=== PATIENT | male | born 1990 | race Caucasian/White ===

== ENCOUNTER 2023-01-20 12:13 | Emergency (ER) | payer MEDICAID, OTHER ==
[~2023-01-20] VITALS: Ht 182.9 cm; Wt 77.3 kg
[~2023-01-20 12:13] MED LIST: AMOX500T2 PO; CLIN150C8 PO
[2023-01-20 12:18] VITALS: BP 121/77
[2023-01-20] MEDS: buprenorphine/naloxone 8MG-2MG SUBlingual film SL STA ×2 (13:40→13:48)
[2023-01-20] MEDS ORDERED: BUPR1FIL3 SL (13:49)
--- NOTE | 2023-01-20 14:18 | NUR ---
Received order for consult. Patient was discharged. Number is disconnected in patient's chart. Unable to follow up.
== END 2023-01-20 14:08 | disposition home or self-care (01) ==
LOC: ER 12:13
DX: F11.99 Opioid use, unspecified with unspecified opioid-induced disorder (principal); F12.90 Cannabis use, unspecified, uncomplicated; Z88.5 Allergy status to narcotic agent
CPT/HCPCS: 99283

== ENCOUNTER 2023-01-28 12:21 | Emergency (ER) | payer MEDICAID ==
[~2023-01-28] VITALS: Ht 182.9 cm; Wt 77.3 kg
[~2023-01-28 12:21] MED LIST changes: +BUPR1FIL3 SL
[2023-01-28 12:51] VITALS: BP 109/76
--- NOTE | 2023-01-28 12:54 | NUR ---
Met with patient for the Bridge program. Patient unable to get an appt yet with [facility]. Just needs another week of Suboxone. I talked to Miguel he will see patient.
[2023-01-28] MEDS ORDERED: BUPR1FIL3 SL (13:32)
== END 2023-01-28 14:05 | disposition home or self-care (01) ==
LOC: ER 12:24
DX: F19.10 Other psychoactive substance abuse, uncomplicated (principal); F12.90 Cannabis use, unspecified, uncomplicated; Z56.0 Unemployment, unspecified; Z88.8 Allergy status to other drugs, medicaments and biological substances; Z79.899 Other long term (current) drug therapy; Z72.89 Other problems related to lifestyle
CPT/HCPCS: 99281

== ENCOUNTER 2023-04-15 13:45 | Emergency (ER) | payer MEDICAID ==
[~2023-04-15] VITALS: Ht 180.3 cm; Wt 67.0 kg
[~2023-04-15 13:45] MED LIST changes: -BUPR1FIL3 SL; +CLIN-214 PO; -CLIN150C8 PO
[2023-04-15 13:58] VITALS: BP 118/73; PULSE 99; RESP 16; TEMP 97.8; O2SAT 99
--- NOTE | 2023-04-15 14:01 | NUR ---
Met with patient for the Bridge Program. Patient has appointment at [facility] next week. Patient requesting Suboxone until appt. I talked to Stormy she will give RX for Suboxone.
[2023-04-15] MEDS ORDERED: BUPR1FIL3 SL (14:03)
== END 2023-04-15 14:40 | disposition home or self-care (01) ==
LOC: ER 13:46
DX: F11.10 Opioid abuse, uncomplicated (principal); Z53.21 Procedure and treatment not carried out due to patient leaving prior to being seen by health care provider
CPT/HCPCS: 99281

== ENCOUNTER 2023-04-22 13:11 | Emergency (ER) | payer MEDICAID ==
[~2023-04-22] VITALS: Ht 180.3 cm; Wt 72.4 kg
[~2023-04-22 13:11] MED LIST changes: +BUPR1FIL3 SL
[2023-04-22 13:45] VITALS: BP 120/81; PULSE 101; RESP 18; TEMP 97.9; O2SAT 98
[2023-04-22] MEDS ORDERED: BUPR1FIL3 SL (15:15)
== END 2023-04-23 06:42 | disposition home or self-care (01) ==
LOC: ER 13:12
DX: F11.10 Opioid abuse, uncomplicated (principal); Z88.6 Allergy status to analgesic agent; Z79.899 Other long term (current) drug therapy; F12.10 Cannabis abuse, uncomplicated
CPT/HCPCS: 99281; 99283

== ENCOUNTER 2023-05-19 22:41 | Emergency (ER) | payer MEDICAID ==
[~2023-05-19] VITALS: Ht 180.3 cm; Wt 77.3 kg
[~2023-05-19 22:41] MED LIST changes: -BUPR1FIL3 SL
[2023-05-19 22:50] VITALS: BP 126/86; PULSE 106; RESP 17; TEMP 98.3; O2SAT 98
[2023-05-20] MEDS ORDERED: cephalexin 250mg capsule PO ONE (02:35)
[2023-05-20] MEDS ORDERED: CEPH250T PO (02:40)
== END 2023-05-20 02:55 | disposition home or self-care (01) ==
LOC: ER 22:42
DX: L08.9 Local infection of the skin and subcutaneous tissue, unspecified (principal); F17.200 Nicotine dependence, unspecified, uncomplicated; F12.90 Cannabis use, unspecified, uncomplicated; Z88.5 Allergy status to narcotic agent; Z79.2 Long term (current) use of antibiotics
CPT/HCPCS: 99283

== ENCOUNTER 2025-03-22 13:45 | Inpatient (IN) | payer MEDICAID ==
[~2025-03-22] VITALS: Ht 180.3 cm; Wt 73.2 kg
--- NOTE | 2025-03-22 16:24 | Physician Documentation ---
History of Present Illness ~ Chief Complaint: Wound Stated Complaint: WOUND Time Seen by MD: 15:05 Primary Medical Doctor: HASMUKH BARKSDALE [facility] 34-year-old male presents to the ED with a complaint of right lower extremity ulcerated wound. States this has been going on for the last three weeks. He adds that he has not been treated for his infection. He also acknowledges being a intravenous opioid user.. He denies the wound being a miss Denies any fevers. States that he is willing to stay in the hospital for IV antibiotics Day of Onset of Wound: Mar 22, 2025 Tetanus within 5 years?: Yes Medication Reconciliation Allergies: Coded Allergies: naproxen (Verified Allergy, Unknown, 03/22/25) Scheduled Amoxicillin (Amoxicillin), 1 TABLET PO TID Clindamycin HCl (Clindamycin HCl CAPSULE), 3 CAP PO QID Past Medical History Past Medical History: No Pertinent History Past Surgical History: no surgical history Smoking Status: Current every day smoker Alcohol Use: Occasionally Drug Use: marijuana, other Lives with: Family Lives In: Homeless Occupation: unemployed Review of Systems All Other Systems at this time: Reviewed and Negative ROS As stated above in the HPI, otherwise all systems are reviewed and negative. Physical Exam Vital Signs: Temperature: 99.0, Source: Temporal, Heart Rate: 112, Respiratory Rate: 16, BP: 112/84, Pulse Oximetry: 100, Weight: 73.200 Oxygen Flow Rate: 0 Physical Exam General: Alert, no apparent distress. Neck: Full range of motion. Respiratory: Lungs clear, no respiratory distress. Cardiovascular: Regular rate and rhythm, no murmurs. Extremities: 6x4cm ulcer draining RLE, surrounding erythema Neurologic: Oriented x4. Psychiatric: Normal mood and affect. Skin: Normal color, warm and dry. No edema, no ecchymosis. Progress Results/Orders Results/Orders Orders - DAMIAN REID SENIOR ELECTRICAL PROJECT MANAGER Ankle, Complete(3vw Min) (03/22/25 16:29) Culture Blood (03/22/25 16:09) Urinalysis, Cult If Indicated (03/22/25 16:09) Chest,Single View (03/22/25 16:29) Monitor (03/22/25 16:09) Saline Lock (03/22/25 16:09) Piperacillin/Tazo 4.5gm/100ml (Zosyn 4.5 (03/22/25 20:00) Page Hospitalist (03/22/25 ) Completed Orders - DAMIAN REID SENIOR ELECTRICAL PROJECT MANAGER Ankle, Complete(3vw Min) (03/22/25 16:29) Cbc/Diff (03/22/25 16:09) Chest,Single View (03/22/25 16:29) Procalcitonin (03/22/25 16:09) BMP (03/22/25 16:09) Lacticsepsis (03/22/25 16:09) Normal Saline 1000ml (0.9% Sodium Chlori (03/22/25 16:35) Vancomycin*Pharmacy To Dose* (Vancomycin (03/22/25 16:35) Morphine 4mg/Ml Inj. (Morphine Inj.) (03/22/25 16:35) Vancomycin/Ns 1 Gm Add-[place] (Vancomyc (03/22/25 16:40) Hgb A1c (03/22/25 16:36) Medications Received in ER Medications (Trade) Dose Ordered Sig/Charisse Route PRN Reason Start Time Stop Time Status Last Admin Dose Admin (0.9% sodium chloride (NS) 1000ml IV soln) 1,000 ml ONCE ONCE IVB 03/22/25 16:35 03/22/25 16:36 DC 03/22/25 17:04 1,000 ML (morphine inj.) 4 mg ONCE ONCE IV 03/22/25 16:35 03/22/25 16:36 DC 03/22/25 17:05 4 MG Vancomycin HCl 250 ml @ 166 mls/hr ONCE ONCE IV 03/22/25 16:40 03/22/25 18:10 DC 03/22/25 17:05 166 MLS/HR Vital Signs 03/22/25 13:51 Temp 99.0 Pulse 112 Resp 16 B/P (MAP) 112/84 Pulse Ox 100 O2 Flow Rate 0 Laboratory Tests Test 03/22/25 16:36 White Blood Count 7.7 Red Blood Count 4.44 L Hemoglobin 12.4 L Hematocrit 36.2 L Mean Corpuscular Volume 81.6 Mean Corpuscular Hemoglobin 27.8 Mean Corpuscular Hemoglobin Concent 34.1 Red Cell Distribution Width 12.6 Platelet Count 315 Mean Platelet Volume 6.8 L Neutrophils (%) (Auto) 74.8 Lymphocytes (%) (Auto) 13.7 L Monocytes (%) (Auto) 9.7 Eosinophils (%) (Auto) 1.3 Basophils (%) (Auto) 0.5 Neutrophils # (Auto) 5.7 Lymphocytes # (Auto) 1.0 L Monocytes # (Auto) 0.7 Eosinophils # (Auto) 0.1 Basophils # (Auto) 0.0 CBC Comment Erythrocyte Sedimentation Rate 38 H Sodium Level 134 L Potassium Level 3.6 Chloride Level 99 Carbon Dioxide Level 31.0 Anion Gap 4 L Blood Urea Nitrogen 12 Creatinine 0.81 Estimated GFR/1.73 m2 > 90 BUN/Creatinine Ratio 14.8 Glucose Level 75 Hemoglobin A1c 5.3 Lactic Acid Level 0.9 Calcium Level 8.7 Albumin 3.0 L Procalcitonin < 0.05 Chemistry Comments Medical Decision Making Findings This patient rice going to require IV antibiotics and evaluation by the hospitalist. He has maintained normal vital signs in his hemodynamically stable. However based on life choices and my concern of him being a poor outpatient candidate,behooves meet to request hospital admission Differential Dx:Considerations: Include: Abscess, Cellulitis Departure Disposition: HOME / SELF CARE / HOMELESS Impression: Primary Impression: Wound cellulitis Additional Impression: Wound Condition: Stable Discharge Instructions: Skin Abscess Referrals: NO PRIMARY CARE PROVIDER (PCP) Signature Scribe Signature: g Attestation: Scribed for Damian Reid Stave Block Splitter by Damian Yeung NP . 03/22/25 18:37 DAMIAN REID NP Mar 22, 2025 16:24
[2025-03-22 16:56] LABS: MEAN PLATELET VOLUME 6.8 FL (7.4-10.4); RED CELL DISTRIBUTION WIDTH 12.6 % (11.5-14.5)
[2025-03-22] MEDS: normal saline 1000ML IV soln IVB ONE (17:04)
[2025-03-22] MEDS: vancomycin/NS 1 GM ADD-VANTAGE 250 ML X 1 DOSE IV ONE (17:05)
[2025-03-22] MEDS: morphine 4 MG/ML inj SYRINge IV ONE (17:05)
[2025-03-22 17:10] LABS: CREATININE 0.81 MG/DL (0.60-1.10); TOTAL CARBON DIOXIDE 31.0 MMOL/L (24-32); eCRCL 132 ML/MIN; eGFR > 90 ML/MIN
--- NOTE | 2025-03-22 17:11 | RADIOLOGY REPORT ---
Indication: ulcerated wound right lower leg Technique: DI ANKLE, COMPLETE(3VW MIN)ANKLECPLT Comparison: None FINDINGS/IMPRESSION: No radiographic evidence for acute fracture or dislocation. Extensive soft tissue edema surrounding the right ankle. Distal right lower anterior extremity soft tissue ulceration
--- NOTE | 2025-03-22 17:11 | RADIOLOGY REPORT ---
CHEST RADIOGRAPH Indication: ulcerated wound right lower leg Technique: DI CHEST,SINGLE VIEW Comparison: None FINDINGS: The cardiac silhouette is unremarkable. The lungs demonstrate no pulmonary airspace consolidation. Th e pulmonary vasculature is unremarkable. There is no pleural effusion. There is no pneumothorax. IMPRESSION: No pulmonary airspace consolidation.
[2025-03-22] MEDS ORDERED: ondansetron/PF 4mg/2ml inj IV PRN (17:40)
[2025-03-22] MEDS ORDERED: magnesium sulf-water 2g/50mL 50 ML IV PRN (17:40)
[2025-03-22] MEDS ORDERED: magnesium sulf-water 4G/100mL 100 ML IV PRN (17:40)
[2025-03-22] MEDS ORDERED: magnesium hydroxide 30ml (MOM) UD suspension PO PRN (17:40)
[2025-03-22] MEDS ORDERED: mag hydrox/Alum hydrox/simeth 30ml oral suspension PO PRN (17:40)
[2025-03-22] MEDS ORDERED: potassium Cl 40MEQ/1/2NS 520ml 520 ML IV PRN (17:40)
[2025-03-22] MEDS ORDERED: potassium Cl 20 mEq SR tablet PO PRN ×2 (17:40)
[2025-03-22] MEDS ORDERED: magnesium Cl slow-release 64mg tablet PO PRN (17:40)
[2025-03-22] MEDS: normal saline 1000ml 1,000 ML IV SCH (17:57)
--- NOTE | 2025-03-22 18:25 | HISTORY AND PHYSICAL-Residence ---
History & Physical Providers to CC Resident Creating Document: BRANDEN MCDONALD RES ~ History of Present Illness Primary Medical Doctor: HASMUKH BARKSDALE Reason for Admit\Complaint: wound History of Present Illness 34-year-old homeless male with a history of opioid use disorder on Suboxone and chronic methamphetamine use presents with a painful, draining wound on the right anterior thigh. The lesion began approximately 3 weeks ago as a small bump, which has progressively enlarged to approximately 44 cm. He describes continuous drainage of bloody and purulent fluid. Pain was initially 5/10 but is currently 2/10. He reports swimming in natural water for a full day around the time the lesion worsened. Denies fevers, chills, or other systemic symptoms. Denies known trauma, insect bites, or similar lesions elsewhere. Continues to smoke methamphetamine and fentanyl but has been on Suboxone for the past two years. Does not have a PCP Homeless currently Ambulates independently Allergies: Coded Allergies: naproxen (Verified Allergy, Unknown, 03/22/25) Home Medications Home Medications Active Amoxicillin 500 Mg Tablet 1 Tablet PO TID Clindamycin HCl CAPSULE (Clindamycin HCl) 150 Mg Capsule 3 Cap PO QID Past Medical History Past Medical History No significant past medical history Past Surgical History Surgical History Comment No surgeries in the past Past Social History Social History Comment Smoking: Half pack of cigarettes since the past 10 years Alcohol: Denied Illicit use of drugs: Fentanyl: Smokes since the past 4 or 5 years, last today morning Methamphetamine: Smokes twice a week since the past 25 years Alcohol Use: Occasionally Drug Use: Marijuana, Other Lives with: Family Lives In: Homeless Occupation: unemployed ROS ROS Reviewed in full. All negative except for pertinent positive HPI. Exam Vitals: Vital Signs Date Time Temp Pulse Resp B/P (MAP) Pulse Ox O2 Delivery O2 Flow Rate FiO2 03/22/25 17:39 16 03/22/25 17:11 86 100 0 03/22/25 13:51 99.0 General: Awake , alert, and oriented x4, resting comfortably in the bed, in no acute distress HEENT: Atraumatic, normocephalic, EOMI, anicteric sclera ; pink conjunctiva Neck: Trachea midline. Supple, full range of motion, no JVD Cardiac: Regular rhythm, regular rate with no murmurs all over the precordium. Respiratory: Equal breath sounds bilaterally, no tachypnea, no wheezing ,rub or rales, Chest wall is symmetric and without deformity. Gastrointestinal: Abdomen symmetric, non-distended, soft, non-tender, normal bowel sounds x4 quadrant, normoactive, no hepatosplenomegaly Musculoskeletal: Right lower extremity: Pustular and blood draining for into 4 cm ulcer with a yellowish slough present on the anterior cruz of the right lower extremity, edema of the foot present Left lower extremity: No pedal edema, no cyanosis Neurological: Speech is clear, alert, and oriented x 4. No motor or sensory deficit, deep tendon reflexes normal, cerebellar intact. Cranial nerves II-XII intact. Skin: Warm and dry Diagnostic Data Last Recorded Lab Results: 03/22/25 1636 03/22/25 1636 Advance Care Planning Advanced Care plannin - 30 Minutes Additional Plan 1. Right anterior thigh skin lesion concern for abscess vs cellulitis vs necrotizing infection: Likely bacterial skin and soft tissue infection, potentially polymicrobial due to environmental exposure and drug use Wound cultures (aerobic and anaerobic) ordered. Blood cultures 2 ordered. Imaging: Right foot and ankle x-ray showed: No radiographic evidence for acute fracture or dislocation. Extensive soft tissue edema surrounding the right ankle. Distal right lower anterior extremity soft tissue ulceration Procalcitonin and white count within normal limits ESR ordered: We will consider ordering MRI if elevated NS at 100 cc/hour Empiric IV antibiotics: He received Vancomycin for MRSA coverage in the ED. Initiating vancomycin and cefepime from tomorrow Wound care consult ordered 2. Substance use disorder (opioids and methamphetamines): Initiated [place] and morphine p.r.n. avoid withdrawal Urine toxicology screen ordered. Substance abuse navigator and social insurance administrator consulted On sitting provided regarding abstinence 3. Homelessness / Housing insecurity: Case management and social work referral for discharge planning and prison resources. 4. Tetanus prophylaxis: Tdap booster ordered Code Status: Full code DVT Prophylaxis: Heparin SQ Analgesia/ Sedation: Morphine/[place] Line/tubes: P IV Nutrition: Regular diet Prognosis: Guarded Disposition: Continue medical management for now Branden Mcdonald MD Internal Medicine Resident, PGY-2 Date of Service: Mar 22, 2025 Billing Provider: DARRIUS CEBALLOS MD, GAURAV, RES Mar 22, 2025 18:25
[2025-03-22] MEDS: TETanus/Pertussis (Acell)/Diphther VAC/PF (Tdap-Adult) 0.5ml syringe IMVAC ONE (18:40)
[2025-03-22] MEDS ORDERED: NO HOME MEDS (18:41)
[2025-03-22] MEDS: K and/or MAG REPLACEMENT MC SCH (19:43)
[2025-03-22] MEDS: heparin, porcine 5000 units/ml vial SQ SCH (20:00)
[2025-03-22] MEDS: docusate sod 100mg capsule PO SCH (20:00)
[2025-03-22] MEDS ORDERED: piperacillin/tazo 4.5gm/100ml 100 ML IV ONE (20:00)
[2025-03-22] MEDS: cefepime 1GM in D5W 50mL 50 ML IV SCH (20:01)
[2025-03-22 22:15] VITALS: BP 145/98; PULSE 97; RESP 18; TEMP 97.8; O2SAT 95
[2025-03-22] MEDS: vancomycin/NS 1 GM ADD-VANTAGE 250 ML IV SCH (23:56)
[2025-03-22] MEDS: HYDROcodone/acetaminophen 5mg/325mg tablet PO PRN (23:58)
[2025-03-23 00:49] LABS: LEUKOCYTE ESTERASE ,URINE TRACE (Neg); NITRITES, URINE NEGATIVE (Neg); OCCULT BLOOD,URINE NEGATIVE (Neg)
[2025-03-23 00:50] LABS: UA COLLECTION TYPE VOIDED
[2025-03-23 00:58] LABS: MUCUS STRANDS MANY /LPF (Neg); SPERM MODERATE /HPF (NEGATIVE); SQUAMOUS EPITHELIAL CELL,UR FEW /LPF (FEW)
[2025-03-23 01:25] LABS: URINE AMPHETAMINE SCREEN POSITIVE (Neg); URINE BARBITUATE SCREEN NEGATIVE (Neg); URINE BENZODIAZEPINES SCREEN NEGATIVE (Neg); URINE CANNABINOID SCREEN NEGATIVE (Neg); URINE COCAINE SCREEN NEGATIVE (Neg); URINE METHADONE SCREEN NEGATIVE (Neg); URINE OPIATE SCREEN POSITIVE (Neg); URINE PHENCYCLIDINE SCREEN NEGATIVE (Neg)
[2025-03-23 04:40] LABS: MEAN PLATELET VOLUME 6.7 FL (7.4-10.4); RED CELL DISTRIBUTION WIDTH 12.7 % (11.5-14.5)
[2025-03-23 05:01] LABS: CHOL/HDL RATIO 3.6 (0.00-4.99); CREATININE 0.67 MG/DL (0.60-1.10); LDL CHOLESTEROL 77 MG/DL (50-100); TOTAL CARBON DIOXIDE 28.9 MMOL/L (24-32); eCRCL 159 ML/MIN; eGFR > 90 ML/MIN
[2025-03-23 06:00] VITALS: BP 128/81; PULSE 92; RESP 18; TEMP 97.8; O2SAT 100
[2025-03-23 08:00] VITALS: RESP 16; O2SAT 100
[2025-03-23 10:00] VITALS: BP 123/87; PULSE 88; RESP 16; TEMP 97.7; O2SAT 100
[2025-03-23] MEDS: VANCOMYCIN LEVEL IV ONE (17:24)
[2025-03-23 18:00] VITALS: BP 121/80; PULSE 88; RESP 16; TEMP 96.9; O2SAT 99
--- NOTE | 2025-03-23 18:38 | PROGRESS NOTE- Residence ---
Progress Note - Resident Providers to CC Resident Creating Document: BRANDEN SANCHEZ RES ~ Antibiotic Timeout Antibiotic Ordered?: Yes Subjective Patient was seen and examined at bedside, oral care has been ordered today. Patient denied any acute overnight symptoms. Objective Vital Signs Date Time Temp Pulse Resp B/P (MAP) Pulse Ox O2 Delivery O2 Flow Rate FiO2 03/23/25 14:49 18 03/23/25 10:00 97.7 88 123/87 (99) 100 Room Air 03/22/25 20:07 0 Result Diagram: 03/23/25 0416 03/23/25 0416 Awake , alert, and oriented x4, resting comfortably in the bed, in no acute distress HEENT: Atraumatic, normocephalic, EOMI, anicteric sclera ; pink conjunctiva Neck: Trachea midline. Supple, full range of motion, no JVD Cardiac: Regular rhythm, regular rate with no murmurs all over the precordium. Respiratory: Equal breath sounds bilaterally, no tachypnea, no wheezing ,rub or rales, Chest wall is symmetric and without deformity. Gastrointestinal: Abdomen symmetric, non-distended, soft, non-tender, normal bowel sounds x4 quadrant, normoactive, no hepatosplenomegaly Musculoskeletal: Right lower extremity: Dressing in place Left lower extremity: No pedal edema, no cyanosis Neurological: Speech is clear, alert, and oriented x 4. No motor or sensory deficit, deep tendon reflexes normal, cerebellar intact. Cranial nerves II-XII intact. Skin: Warm and dry Advance Care Planning Advanced Care plannin - 30 Minutes Assessment Assessment 34-year-old homeless male with a history of opioid use disorder on Suboxone and chronic methamphetamine use presents with a painful, draining wound on the right anterior thigh. The lesion began approximately 3 weeks ago as a small bump, which has progressively enlarged to approximately 44 cm. He describes continuous drainage of bloody and purulent fluid. Pain was initially 5/10 but is currently 2/10. He reports swimming in natural water for a full day around the time the lesion worsened. Denies fevers, chills, or other systemic symptoms. Denies known trauma, insect bites, or similar lesions elsewhere. Continues to smoke methamphetamine and fentanyl but has been on Suboxone for the past two years. Plan Plan 1. Right anterior thigh skin lesion concern for abscess vs cellulitis vs necrotizing infection: Likely bacterial skin and soft tissue infection, potentially polymicrobial due to environmental exposure and drug use Wound cultures (aerobic and anaerobic) grew Gram-positive cocci in pairs, pending final results Blood cultures 2 negative until now Imaging: Right foot and ankle x-ray showed: No radiographic evidence for acute fracture or dislocation. Extensive soft tissue edema surrounding the right ankle. Distal right lower anterior extremity soft tissue ulceration Procalcitonin and white count within normal limits ESR elevated, MRI ordered NS at 100 cc/hour Empiric IV antibiotics: He received Vancomycin for MRSA coverage in the ED. Continue vancomycin and cefepime Wound care consult ordered 2. Substance use disorder (opioids and methamphetamines): Continue [place] and morphine p.r.n. avoid withdrawal Urine toxicology positive for amphetamines and fentanyl Substance abuse navigator and sexual assault social worker consulted Education provided regarding abstinence 3. Homelessness / Housing insecurity: Case management and social work referral for discharge planning and [facility] resources. 4. Tetanus prophylaxis: Tdap booster administered Code Status: Full code DVT Prophylaxis: Heparin SQ Analgesia/ Sedation: Morphine/[place]/tubes: P IV Nutrition: Regular diet Prognosis: Guarded Disposition: Continue medical management for now Branden Sanchez MD Internal Medicine Resident, PGY-2 Date of Service: Mar 23, 2025 Billing Provider: DARRIUS CEBALLOS MD,BRANDEN, RES Mar 23, 2025 18:38
--- NOTE | 2025-03-23 18:54 | CARDIOLOGY REPORT ---
APPROVED REPORT EXAM: Comprehensive 2D, Doppler, and color-flow Echocardiogram. Patient Location: ED1 Blood Pressure: 125/86 mmHg Heart Rate: 82 bpm Rhythm: NSR Indications Evaluate for endocarditis/vegetation No accounts payable representative No previous echo 2D Dimensions LA Diam3.8 cm IVSd 0.8 (0.7-1.1cm) LVDd 5.3 cm PWd 0.9 (0.7-1.1cm) IVSs 1.1 (0.8-1.2cm) LVDs 3.8 (2.5-4.0cm) PWs 1.1 (0.8-1.2cm) LVEF(%) 55.0 (>50%) IVC 21.58 mmFS (%) 28.8 % SV 74.6 ml CO 6.2 L/min M-Mode Dimensions Aortic Root 3.91 (2.2-3.7cm) Aortic Cusp Exc 1.89 (1.5-2.0cm) Aortic Valve AoV Peak Christiano. 100.8 cm/s AoV VTI 19.5 cm AO Peak GR. 4.1 mmHg AO Mean GR. 2 mmHg LVOT VTI 20.97 cm LVOT Peak Christiano. 91.4 cm/s NASIR(VTI)/BSA 5.55 cm2/m2 NASIR (VTI) 5.55 cm2 Mitral Valve MV E Velocity 70.4 cm/s MV Peak Gr. 3 mmHg MV DECEL TIME 144 ms MV A Velocity 50.1 cm/s MV PHT 44 ms E/A Ratio 1.4 MVA (PHT) 5.00 cm2 MV VMax83.1 cm/s TDI Medial E' P. V 14.39 cm/s E/Medial E' 4.9 Tricuspid Valve RAP ESTIMATE 10 mmHg Pulmonary Vein S1 Velocity 45.4 cm/s D2 Velocity 28.5 cm/s PVa Zfhaddfc60.2 cm/s PVa [id number] msec LEFT VENTRICLE Normal LV size and wall thickness. Overall systolic function is normal. LVEF is 55%. RIGHT VENTRICLE RV is normal size and function. ATRIA The left atrium size is normal. AORTIC VALVE Trileaflet AV appears sclerotic without stenosis. No insufficiency. Poor Doppler angles due to lack o f adequate imaging windows, quantitative data must be clinically correlated. MITRAL VALVE MV is thickened with no annular calcification or stenosis. Trace mitral regurgitation. TRICUSPID VALVE The tricuspid valve is normal in structure. Trace tricuspid regurgitation. PULMONIC VALVE The pulmonary valve is normal in structure. Trace pulmonic regurgitation. GREAT VESSELS Aortic root is mildly dilated. IVC is dilated and collapses greater than 50% with inspiration . PERICARDIUM There is no pericardial effusion. Other Information Study Quality: Adequate Conclusion Normal LV size and wall thickness. Overall systolic function is normal. LVEF is 55%. RV is normal size and function. The left atrium size is normal. Trileaflet AV appears sclerotic without stenosis. No insufficiency. Poor Doppler angles due to lack o f adequate imaging windows, quantitative data must be clinically correlated. MV is thickened with no annular calcification or stenosis. Trace mitral regurgitation. The tricuspid valve is normal in structure. Trace tricuspid regurgitation. The pulmonary valve is normal in structure. Trace pulmonic regurgitation. Aortic root is mildly dilated. There is no pericardial effusion.
--- NOTE | 2025-03-23 19:59 | RADIOLOGY REPORT ---
EXAM: MR MRI LOWER EXTREMITY RIGHT HISTORY: to rule out osteomyelitis COMPARISON: None TECHNIQUE: Multiplanar, multisequence imaging of the right knee was performed without contrast FINDINGS: There is no evidence of marrow replacing process. No fracture or subluxation. Joint alignment is maintained. The tailor dome is unremarkable. There is soft tissue swelling of the forefoot. No abscess or fluid collection. No enhancing lesions. There is mild tendinosis of the perineal brevis and longus tendons. Remainder of the tendons are unre markable. IMPRESSION: 1. Diffuse soft tissue swelling of the forefoot 2. No evidence of osteomyelitis or discrete abscess.
[2025-03-23 20:00] VITALS: RESP 16; O2SAT 99
[2025-03-23 22:00] VITALS: BP 131/86; PULSE 84; RESP 20; TEMP 98.2; O2SAT 100
[2025-03-24 04:53] LABS: MEAN PLATELET VOLUME 6.9 FL (7.4-10.4); RED CELL DISTRIBUTION WIDTH 12.6 % (11.5-14.5)
[2025-03-24 05:10] LABS: CREATININE 0.69 MG/DL (0.60-1.10); TOTAL CARBON DIOXIDE 27.5 MMOL/L (24-32); eCRCL 155 ML/MIN; eGFR > 90 ML/MIN
[2025-03-24 06:00] VITALS: BP 121/83; PULSE 78; RESP 16; TEMP 97.7; O2SAT 100
[2025-03-24 08:00] VITALS: RESP 16; O2SAT 100
[2025-03-24 10:00] VITALS: BP 123/80; PULSE 82; RESP 18; TEMP 98.2; O2SAT 99
[2025-03-24] MEDS ORDERED: LACT1CAP26 PO (11:46)
[2025-03-24] MEDS ORDERED: LINE600T14 PO (11:46)
[2025-03-24 11:57] VITALS: RESP 18
[2025-03-24] MEDS ORDERED: VANCOmycin 1250MG/NS 250ml Bag 250 ML IV SCH (17:00)
--- NOTE | 2025-03-24 17:20 | DISCHARGE SUMMARY-Residence ---
Discharge Summary Providers to CC Resident Creating Document: BRANDEN MCDONALD, RES ~ Discharge Summary Admission Diagnosis: Right lower extremity wound and cellulitis Hospital Course DATE OF ADMISSION: 03/22/2025 DATE OF DISCHARGE: 03/24/2025 Discharge Diagnosis\Comment: 1. Right anterior thigh skin wound concern for cellulitis Ruled out osteomyelitis 2. Substance use disorder (opioids and methamphetamines) 3. Homelessness / Housing insecurity Operations\Procedures: None Consultants: Wound care Complications: None Condition on DC: Stable New Medications: Lactobacillus Rhamnosus (Culturelle) 10 Billion Cell Capsule 1 CAP PO DAILY for 30 Days, #30 CAP 0 Refills Linezolid (Linezolid) 600 Mg Tablet 1 TAB PO Q12H for 10 Days, #20 TAB 0 Refills Discharge Summary: HPI as per admitting physician: 34-year-old homeless male with a history of opioid use disorder on Suboxone and chronic methamphetamine use presents with a painful, draining wound on the right anterior thigh. The lesion began approximately 3 weeks ago as a small bump, which has progressively enlarged to approximately 44 cm. He describes continuous drainage of bloody and purulent fluid. Pain was initially 5/10 but is currently 2/10. He reports swimming in natural water for a full day around the time the lesion worsened. Denies fevers, chills, or other systemic symptoms. Denies known trauma, insect bites, or similar lesions elsewhere. Continues to smoke methamphetamine and fentanyl but has been on Suboxone for the past two years. Does not have a PCP Homeless currently Ambulates independently Hospital course: Initial workup included wound cultures, which showed Gram-posit katya cocci in pairs (final identification pending), and blood cultures were negative to date. Right foot and ankle X-ray revealed no evidence of fracture or dislocation but did show extensive soft tissue edema and distal soft tissue ulceration. Given elevated ESR and concern for deep infection, an MRI was ordered, which was negative for osteomyelitis.The patient was started empirica lly on IV vancomycin and cefepime, which were continued during hospitalization. Wound care was consulted for ongoing assessment and management of the lesion. The patient has shown stable clinical status without signs of systemic infection (afebrile, normal procalcitonin and WBC). Pain has been well managed with PRN morphine and [place]. services account manager and a substance use navigator were consulted. While education was provided regarding abstinence and treatment options, the patient declined assistance from social science research assistant at this time. He remains homeless and expresses no interest in inpatient rehab or half-way options currently.Tetanus prophylaxis was updated with a Tdap booster. Nutrition maintained on regular diet. The patient has been alert, oriented 4, and without acute distress during hospital stay. Disposition planning is ongoing with medical management to continue for infection control and wound healing. Patient did not experience further complications throughout the entire hospital stay. Patient was seen and examined on the day of discharge. All labs, diagnostic workups, discharge plan discussed with patient in details during visit before discharge. All questions and concerns answered to the best of my professional knowledge. Physical examination today: Awake , alert, and oriented x4, resting comfortably in the bed, in no acute distress HEENT: Atraumatic, normocephalic, EOMI, anicteric sclera ; pink conjunctiva Neck: Trachea midline. Supple, full range of motion, no JVD Cardiac: Regular rhythm, regular rate with no murmurs all over the precordium. Respiratory: Equal breath sounds bilaterally, no tachypnea, no wheezing ,rub or rales, Chest wall is symmetric and without deformity. Gastrointestinal: Abdomen symmetric, non-distended, soft, non-tender, normal bowel sounds x4 quadrant, normoactive, no hepatosplenomegaly Musculoskeletal: Right lower extremity: Dressing in place Left lower extremity: No pedal edema, no cyanosis Neurological: Speech is clear, alert, and oriented x 4. No motor or sensory deficit, deep tendon reflexes normal, cerebellar intact. Cranial nerves II-XII intact. Skin: Warm and dry Laboratory Tests Test 03/22/25 18:45 03/22/25 23:50 03/23/25 04:16 03/23/25 16:22 Lactic Acid Level 1.1 MMOL/L Urine Specimen Description Voided Urine Color Straw Urine Clarity Clear Urine pH 6.0 Urine Specific [place] 1.025 Urine Protein Negative mg/dl Urine Glucose (UA) Negative mg/dl Urine Ketones Negative mg/dl Urine Occult Blood Negative Urine Nitrite Negative Urine Bilirubin Negative Urine Urobilinogen 2.0 E.U/dL Urine Leukocyte Esterase Trace Urine RBC 0-2 /HPF Urine WBC 10-20 /HPF Urine Squamous Epithelial Cells Few /LPF Urine Bacteria None seen /HPF Urine Mucus Many /LPF Urine Sperm Moderate /HPF Urine Culture Indicated Indicated Volume Urine Centrifuged 10 ml Urine Comment Urine Opiates Screen Positive Urine Methadone Screen Negative Urine Fentanyl Screen Positive Urine Barbiturates Screen Negative Urine Phencyclidine Screen Negative Urine Amphetamines Screen Positive Urine Benzodiazepines Screen Negative Urine Cocaine Screen Negative Urine Cannabinoids Screen Negative Drug Screen Comment White Blood Count 8.5 X10'3 Red Blood Count 4.28 X10'6 Hemoglobin 11.9 g/dl Hematocrit 35.0 % Mean Corpuscular Volume 81.9 FL Mean Corpuscular Hemoglobin 27.9 PG Mean Corpuscular Hemoglobin Concent 34.0 g/dL Red Cell Distribution Width 12.7 % Platelet Count 266 X10'3 Mean Platelet Volume 6.7 FL Neutrophils (%) (Auto) 72.8 % Lymphocytes (%) (Auto) 15.4 % Monocytes (%) (Auto) 9.9 % Eosinophils (%) (Auto) 1.4 % Basophils (%) (Auto) 0.5 % Neutrophils # (Auto) 6.2 X10'3 Lymphocytes # (Auto) 1.3 X10'3 Monocytes # (Auto) 0.8 X10'3 Eosinophils # (Auto) 0.1 X10'3 Basophils # (Auto) 0.0 X10'3 CBC Comment Sodium Level 136 MMOL/L Potassium Level 3.7 MMOL/L Chloride Level 103 MMOL/L Carbon Dioxide Level 28.9 MMOL/L Anion Gap 4 Blood Urea Nitrogen 8 MG/DL Creatinine 0.67 MG/DL Estimated GFR/1.73 m2 > 90 ML/MIN BUN/Creatinine Ratio 11.9 Glucose Level 97 MG/DL Calcium Level 8.2 MG/DL Magnesium Level 1.9 MG/DL Total Bilirubin 0.2 MG/DL Aspartate Amino Transf (AST/SGOT) 16 U/L Alanine Aminotransferase (ALT/SGPT) 18 U/L Alkaline Phosphatase 89 IU/L Total Protein 6.8 G/DL Albumin 2.4 G/DL Globulin 4.4 G/DL Albumin/Globulin Ratio 0.5 Triglycerides Level 51 MG/DL Cholesterol Level 126 MG/DL LDL Cholesterol 77 MG/DL HDL Cholesterol 35 MG/DL Cholesterol/HDL Ratio 3.6 Chemistry Comments Vancomycin Level Trough 13.1 ug/mL Test 03/24/25 04:30 White Blood Count 7.8 X10'3 Red Blood Count 4.29 X10'6 Hemoglobin 12.0 g/dl Hematocrit 34.9 % Mean Corpuscular Volume 81.5 FL Mean Corpuscular Hemoglobin 27.9 PG Mean Corpuscular Hemoglobin Concent 34.3 g/dL Red Cell Distribution Width 12.6 % Platelet Count 309 X10'3 Mean Platelet Volume 6.9 FL Neutrophils (%) (Auto) 72.0 % Lymphocytes (%) (Auto) 16.8 % Monocytes (%) (Auto) 9.4 % Eosinophils (%) (Auto) 1.1 % Basophils (%) (Auto) 0.7 % Neutrophils # (Auto) 5.6 X10'3 Lymphocytes # (Auto) 1.3 X10'3 Monocytes # (Auto) 0.7 X10'3 Eosinophils # (Auto) 0.1 X10'3 Basophils # (Auto) 0.1 X10'3 CBC Comment Sodium Level 137 MMOL/L Potassium Level 3.7 MMOL/L Chloride Level 104 MMOL/L Carbon Dioxide Level 27.5 MMOL/L Anion Gap 6 Blood Urea Nitrogen 7 MG/DL Creatinine 0.69 MG/DL Estimated GFR/1.73 m2 > 90 ML/MIN BUN/Creatinine Ratio 10.1 Glucose Level 91 MG/DL Calcium Level 8.6 MG/DL Magnesium Level 1.8 MG/DL Total Bilirubin 0.4 MG/DL Aspartate Amino Transf (AST/SGOT) 14 U/L Alanine Aminotransferase (ALT/SGPT) 17 U/L Alkaline Phosphatase 91 IU/L Total Protein 7.4 G/DL Albumin 2.7 G/DL Globulin 4.7 G/DL Albumin/Globulin Ratio 0.6 Chemistry Comments Advise on discharge: - wound care appointment, to be followed - resources for deaddiction clinic, for Suboxone - continue antibiotics as prescribed - call 911/go to the nearby ED if any emergencies - patient will also need referral to primary care provider *Problems/Diagnosis: (1) Infection of skin and subcutaneous tissue Status: Acute (2) Wound cellulitis Status: Acute Total Time Spent on D/C: Up to 30 Minutes Date of Service: Mar 24, 2025 Billing Provider: DARRIUS CEBALLOS MD, GAURAV, RES Mar 24, 2025 17:20
[2025-03-25] MEDS ORDERED: VANCOMYCIN LEVEL IV ONE (16:30)
== END 2025-03-24 13:17 | disposition home or self-care (01) | DRG 383 ==
LOC: ER 13:46 → ED HOLD 16:54 → SUR 3N 22:15
PROVIDERS: ADMIT Family Medicine; ATTEND Family Medicine
PROC: 3E0234Z Introduction of Serum, Toxoid and Vaccine into Muscle, Percutaneous Approach (ICD-10-PCS; principal; 2025-03-22)
DX: L03.115 Cellulitis of right lower limb (principal); S71.101A Unspecified open wound, right thigh, initial encounter; X58.XXXA Exposure to other specified factors, initial encounter; F15.90 Other stimulant use, unspecified, uncomplicated; F11.90 Opioid use, unspecified, uncomplicated; Y93.89 Activity, other specified; Y92.89 Other specified places as the place of occurrence of the external cause; Y99.8 Other external cause status; Z59.00 Homelessness unspecified; Z87.891 Personal history of nicotine dependence; Z88.8 Allergy status to other drugs, medicaments and biological substances
CPT/HCPCS: 36415; 71045; 73610; 73722; 80048; 80053; 80061; 80202; 80305; 81001; 83036; 83605; 83735; 84145; 85025; 85651; 87040; 87070; 87075; 87077; 87081; 87088; 87102; 87186; 93306; 96361; 96365; 99285; A6196; A6223; A6253; A6258; A6402; A6446; A6449; G0378; J0692; J1644; J2270; J3373; J7030

== ENCOUNTER 2025-08-04 17:00 | Inpatient (IN) | payer MEDICAID ==
[~2025-08-04] VITALS: Ht 180.3 cm; Wt 80.0 kg
[~2025-08-04 17:00] MED LIST changes: -AMOX500T2 PO; -CLIN-214 PO; +LACT1CAP26 PO; +LINE600T14 PO; +NO HOME MEDS
--- NOTE | 2025-08-04 17:33 | Physician Documentation ---
History of Present Illness ~ Chief Complaint: Leg Pain Stated Complaint: CELLULITIS OK to notify your PCP?: Yes Primary Medical Doctor: HASMUKH BARKSDALE Source: patient Mode of Arrival: POV Exam Limitations: no limitations HPI Large wound to right anterior cruz for the past year. He reports that it has opened up and started draining and gotten worse over the past 4 days. He denies any fevers. Has been hospitalized in the past from this wound. Tetanus witin 5 years: Yes Medication Reconciliation Allergies: Coded Allergies: naproxen (Verified Allergy, Unknown, 08/04/25) Scheduled Lactobacillus Rhamnosus (Culturelle), 1 CAP PO DAILY Linezolid (Linezolid), 1 TAB PO Q12H Miscellaneous Medications Home Med List (No Home Medications), (Reported) Past Medical History Past Medical History: No Pertinent History Past Surgical History: no surgical history Patient History: Patient reports no known family medical history. Alcohol Use: Occasionally Drug Use: marijuana, other Lives with: Family Lives In: Homeless Occupation: unemployed Review of Systems All Other Systems at this time: Reviewed and Negative Physical Exam Vital Signs: RN Vital Signs have been reviewed: Yes, Temperature: 98.1, Source: Temporal, Heart Rate: 120, Respiratory Rate: 16, BP: 142/92, Pulse Oximetry: 99, Weight: 80.000 Oxygen Flow Rate: 0 Pulse Oximetry Reflects: adequate oxygenation Progress Results/Orders Results/Orders Vital Signs 08/04/25 17:15 Temp 98.1 Pulse 120 Resp 16 B/P (MAP) 142/92 Pulse Ox 99 O2 Flow Rate 0 Departure Referrals: NO PRIMARY CARE PROVIDER (PCP) Additional Comment Medical Screen Exam This patient recieved a medical screening examination. After reviewing the individual's medical complaints with presenting symptoms and performing an appropriate physical examination, it was determined that no immediate life- threatening emergency medical condition is present. This individual is also not a women having contractions. RABIA TIDWELL TAPE SEWER Aug 04, 2025 17:33
[2025-08-04 19:26] LABS: MEAN PLATELET VOLUME 7.2 FL (7.4-10.4); RED CELL DISTRIBUTION WIDTH 12.7 % (11.5-14.5)
[2025-08-04] MEDS: ketorolac trometh 15mg/ml vial 15 MG/ML ML IV ONE (20:59)
[2025-08-04 21:18] LABS: CREATININE 0.91 MG/DL (0.60-1.10); TOTAL CARBON DIOXIDE 30.6 MMOL/L (24-32); eCRCL 121 ML/MIN; eGFR > 90 ML/MIN
[2025-08-04] MEDS ORDERED: iohexol 300mg/ml 100ml inj. ONE (22:15)
[2025-08-04] MEDS ORDERED: potassium Cl 20 mEq SR tablet PO PRN ×2 (23:00)
[2025-08-04] MEDS ORDERED: magnesium hydroxide 30ml (MOM) UD suspension PO PRN (23:00)
[2025-08-04] MEDS ORDERED: magnesium sulf-water 4G/100mL 100 ML IV PRN (23:00)
[2025-08-04] MEDS ORDERED: mag hydrox/Alum hydrox/simeth 30ml oral suspension PO PRN (23:00)
[2025-08-04] MEDS ORDERED: ondansetron/PF 4mg/2ml inj IV PRN (23:00)
[2025-08-04] MEDS ORDERED: magnesium sulf-water 2g/50mL 50 ML IV PRN (23:00)
[2025-08-04] MEDS ORDERED: magnesium Cl slow-release 64mg tablet PO PRN (23:00)
[2025-08-04] MEDS ORDERED: potassium Cl 40MEQ/1/2NS 520ml 520 ML IV PRN (23:00)
--- NOTE | 2025-08-04 23:15 | RADIOLOGY REPORT ---
INDICATION: Wounds, cellulitis LT LOWER LEG KNEE TO FOOT COMPARISON: MR MRI LOWER EXTREMITY RIGHT on DOS: 03/23/25 TECHNIQUE: CT of the left lower extremity was performed with contrast. Volume transverse images were obtained and reconstructed in multiple planes using bone and soft tissue algorithms. 100 mL of Omni 300 was administered Radiation Dose Information: CT Dose: CTDI volume is 7.6 mGy. Dose-length product is 539 mGy*cm FINDINGS: The alignment is normal. The joint spaces are normal. There is no fracture, dislocation or aggressive osseous lesion. Fat stranding and skin thickening throughout the left leg and ankle is suspicious for cellulitis. No discernible abscess identified. IMPRESSION: 1. No acute osseous abnormality. 2. Fat stranding and skin thickening throughout the left leg and is suspicious for cellulitis. No discernible abscess identified. All CT scans at this medical facility are performed using dose modulation techniques as appropriate to a performed exam including the following: Automated exposure control was utilized; adjustment of the MA and/or KV according to patient size; and use of iterative reconstruction technique.
[2025-08-04 23:48] LABS: LEUKOCYTE ESTERASE ,URINE NEGATIVE (Neg); NITRITES, URINE NEGATIVE (Neg); OCCULT BLOOD,URINE NEGATIVE (Neg)
[2025-08-04 23:50] LABS: UA COLLECTION TYPE CLN CATCH MIDSTREAM
[2025-08-04 23:56] LABS: URINE AMPHETAMINE SCREEN POSITIVE (Neg); URINE BARBITUATE SCREEN NEGATIVE (Neg); URINE BENZODIAZEPINES SCREEN NEGATIVE (Neg); URINE CANNABINOID SCREEN POSITIVE (Neg); URINE COCAINE SCREEN NEGATIVE (Neg); URINE METHADONE SCREEN NEGATIVE (Neg); URINE OPIATE SCREEN NEGATIVE (Neg); URINE PHENCYCLIDINE SCREEN NEGATIVE (Neg)
[2025-08-04 23:59] LABS: MUCUS STRANDS FEW /LPF (Neg); SQUAMOUS EPITHELIAL CELL,UR FEW /LPF (FEW)
[2025-08-05] MEDS: VANCOMYCIN 2GM/400ML H20 (PEG) 400 ML IV ONE (00:44)
[2025-08-05] MEDS: HYDROcodone/acetaminophen 5mg/325mg tablet PO PRN (01:22)
[2025-08-05 01:45] VITALS: BP 115/76; PULSE 101; RESP 19; TEMP 98.2; O2SAT 99
--- NOTE | 2025-08-05 04:18 | HISTORY AND PHYSICAL-Residence ---
History & Physical Providers to CC Resident Creating Document: FOXMICHAELLISAGARY ~ History of Present Illness Primary Medical Doctor: HASMUKH BARKSDALE Reason for Admit\Complaint: cELLULITIS. History of Present Illness This is a 34-year-old homeless male with a history of opioid use disorder presented in ER with a chief complaint of right lower leg ulcerated wound. Patient reports that came here for the same complaint about four months ago and was treated with antibiotics which was healed however for the past one month he started noticing a wound which is painful, draining little bit and patient does not remember how it occurred. In addition to that he also has multiple wounds on right foot since three weeks which he thinks it is due to because of shoes and because of thorns. Denies nausea, vomiting, chest pain, shortness of breath Allergies: Coded Allergies: naproxen (Verified Allergy, Unknown, 08/04/25) Home Medications Home Medications Active Reported No Home Medications (Home Med List) Each Past Medical History Past Medical History Denies past medical history Past Surgical History Surgical History Comment Denies past surgical history Family History Family History: Patient reports no known family medical history. Past Social History Social History Comment Smoked cigarettes 1 -2 per day since 20 years Denies alcohol use Used fentanyl every other day since 15 years Smoke meth once or twice a week since 10 year Alcohol Use: Occasionally Drug Use: Other ROS ROS All reviewed and negative except for pertinent positive findings mentioned in HPI Exam Vitals: Vital Signs Date Time Temp Pulse Resp B/P (MAP) Pulse Ox O2 Delivery O2 Flow Rate FiO2 08/05/25 03:38 Room Air 08/05/25 02:10 106 08/05/25 01:45 98.2 19 115/76 (89) 99 08/05/25 01:32 0 General: General: awake, alert oriented to place, time, and person HEENT: No pallor present, no icterus, moist mucous membranes Neck: No masses and tenderness Resp: Unlabored. Lungs clear to auscultation bilaterally. Chest: Normal expansion. Cardiovascular: Regular Rate and rhythm, normal S1 and S2 without murmur, rub or gallop Abdomen: Soft and non tender in epigastrium, no organomegaly, no guarding and rigidity, bowel sounds present Neuro: No focal weakness in the upper and lower limb muscles, power of the muscles 5/5 bilateral upper and lower extremities, normal reflexes bilaterally. Cranial nerves intact Extremities: No cyanosis,clubbing or edema Right lower extremity , ulcerated wound on leg Multiple small wounds on right hand Left lower extremity: multiple wounds. Skin: Warm and Dry. Psych: Normal affect Diagnostic Data Last Recorded Lab Results: 08/05/2543108/05/25431 Advance Care Planning Advanced Care plannin - 30 Minutes (I spent 17 minutes in discussing various resustitative measures with patient and he choose to be full code.) Additional Plan 1. Righ lower extremity Ulcerated Wound concern for abscess vs cellulitis vs necrotizing infection Cellulitis Left lower extremity multiple wounds Multiple small wounds in right hand. Lower extremity CT right side: 1. No acute osseous abnormality, Fat stranding and skin thickening throughout the left leg and is suspicious for cellulitis. Likely bacterial skin and soft tissue infection, potentially polymicrobial due to environmental exposure and drug use Leukocytosis, procal normal, follow up ESR Started patient on vancomycin and cefepime Consulted Wound Care Wound culture 2. Substance use disorder Urine toxicology positive fentanyl Substance abuse navigator and hospice social worker consulted 3. Homelessness Code status: Full code DVT prophylaxis: Lovenox Disposition: Continue monitoring patient on antibiotics and wound care. Date of Service: Aug 05, 2025 Billing Provider: ROSA MARIA BAUTISTA MD Addendum Attestation I agree with the residents assessment and plan as below: 34 year old male admitted with multiple leg wounds Plan: resend cultures continue cefepime and vancomycin would care consult CCT 53 min using HIPPA compliant A/V technology LISA FOX RES Aug 05, 2025 04:18 ROSA MARIA BAUTISTA MD Aug 05, 2025 09:12
[2025-08-05 05:38] LABS: MEAN PLATELET VOLUME 7.5 FL (7.4-10.4); RED CELL DISTRIBUTION WIDTH 12.7 % (11.5-14.5)
[2025-08-05 05:42] LABS: APTT 32 SECONDS (22-32); INR 1.1 INR
[2025-08-05 05:53] LABS: CREATININE 0.88 MG/DL (0.60-1.10); PHOSPHORUS 3.8 MG/DL (2.3-4.5); TOTAL CARBON DIOXIDE 31.9 MMOL/L (24-32); eCRCL 125 ML/MIN; eGFR > 90 ML/MIN
[2025-08-05 06:00] VITALS: BP 114/64; PULSE 104; RESP 16; TEMP 97.9; O2SAT 96
[2025-08-05] MEDS ORDERED: enoxaparin 40mg/0.4ml syringe SUBCUT SCH (08:00)
[2025-08-05] MEDS: K and/or MAG REPLACEMENT MC SCH (08:00)
[2025-08-05] MEDS: enoxaparin 40mg/0.4ml syringe SUBCUT SCH (08:00)
[2025-08-05] MEDS: cefepime 1GM in D5W 50mL 50 ML IV SCH (08:32)
[2025-08-05] MEDS: docusate sod 100mg capsule PO SCH (08:33)
[2025-08-05 10:00] VITALS: BP 112/63; PULSE 107; RESP 18; TEMP 98.5; O2SAT 97
[2025-08-05] MEDS: vancomycin/NS 1 GM ADD-VANTAGE 250 ML IV SCH (10:02)
--- NOTE | 2025-08-05 12:34 | RADIOLOGY REPORT ---
EXAM: CT CT LOWER EXTREMITY W/ IV CONTRAST REASON FOR EXAM: ulcer right cruz TECHNIQUE: CT of the right lower extremity from the knee joint through the foot was acquired after the administration of IV contrast. COMPARISON: CT CT LOWER EXTREMITY W/ IV CONTRAST on DOS: 08/04/25, MR MRI LOWER EXTREMITY RIGHT on DOS: 03/23/25, DI ANKLE, COMPLETE(3VW MIN) on DOS: 03/22/25 FINDINGS: There is moderate dorsal soft tissue swelling at the foot. Otherwise, there is mild soft tissue swelling. There is a 3.6 cm skin ulceration at the level of the right lower tibia/fibula anterolaterally. There is mild underlying soft tissue swelling. No discrete fluid collection to suggest an abscess is seen. No cortical erosion or periosteal reaction is seen. IMPRESSION: Moderate dorsal soft tissue swelling. Mild soft tissue swelling throughout the remainder of the imaged right lower extremity. 3.6 cm skin ulceration anterolaterally at the level of the right lower tibia/fibula. No CT evidence for abscess or osteomyelitis.
--- NOTE | 2025-08-05 15:32 | PROGRESS NOTE ---
Daily Progress Note Providers to CC ~ Antibiotic Timeout Antibiotic Ordered?: Yes Subjective The patient is white blood cell count has normalized- bilateral lower extremity CTs are negative for osteomyelitis or abscess. The patient has no acute complaints Objective Vital Signs Date Time Temp Pulse Resp B/P (MAP) Pulse Ox O2 Delivery O2 Flow Rate FiO2 08/05/25 10:00 98.5 107 18 112/63 (79) 97 Room Air 08/05/25 01:32 0 Result Diagram: 08/05/2543108/05/25431 Gen. No acute distress alert and oriented 4 Lungs clear to ascultation bilaterally, no wheezes rales or rhonchi appreciated Heart normal sinus rhythm no murmurs rubs or clicks noted Abdomen soft nontender bowel sounds are normoactive Lower extremities moderate edema of the distal left lower extremity with a blister on the heel with a faint erythema, anterior cruz ulcerations on the right distal lower extremity with surrounding erythem no edema appreciated Coagulation Studies Laboratory Tests Test 08/05/25 04:32 Prothrombin Time 10.9 SECONDS (9.0-12.0) INR International Normalized Ratio 1.1 INR Activated Partial Thromboplast Time 32 SECONDS (22-32) Coagulation Comments Problem\Assessment\Plan Problems/Diagnosis: (1) Infection of skin and subcutaneous tissue 1. Righ lower extremity Ulcerated Wound Left lower extremity multiple wounds Multiple small wounds in right hand. Bilateral lower extremity CT: No signs of osteomyelitis or abscess Continue IV cefepime and vancomycin white blood cell count is downtrending 2. Substance use disorder Urine toxicology positive fentanyl Substance abuse navigator and dialysis social worker consulted 3. Homelessness Code status: Full code DVT prophylaxis: Lovenox Disposition: Continue monitoring patient on antibiotics and wound care. Date of Service: Aug 05, 2025 Billing Provider: LUCRETIA HAAS DO Common Visit Codes: [id number] INP/OBS CARE(HIGH) LUCRETIA HAAS DO Aug 05, 2025 15:32
[2025-08-05 18:00] VITALS: BP 120/78; PULSE 100; RESP 18; TEMP 98.3; O2SAT 100
[2025-08-05] MEDS: nicotine 7mg patch - 24hr TD ONE (20:45)
[2025-08-05 22:00] VITALS: BP 116/74; PULSE 97; RESP 18; TEMP 98.1; O2SAT 100
[2025-08-06] MEDS: VANCOMYCIN LEVEL IV ONE (00:30)
[2025-08-06 01:48] LABS: MEAN PLATELET VOLUME 7.1 FL (7.4-10.4); RED CELL DISTRIBUTION WIDTH 12.6 % (11.5-14.5)
[2025-08-06 02:00] LABS: APTT 31 SECONDS (22-32); INR 1.1 INR
[2025-08-06 02:02] LABS: CREATININE 0.73 MG/DL (0.60-1.10); TOTAL CARBON DIOXIDE 31.5 MMOL/L (24-32); eCRCL 150 ML/MIN; eGFR > 90 ML/MIN
[2025-08-06 02:03] LABS: PHOSPHORUS 4.7 MG/DL (2.3-4.5)
[2025-08-06 06:00] VITALS: BP 119/79; PULSE 76; RESP 18; TEMP 98.1; O2SAT 100
[2025-08-06 10:00] VITALS: BP 124/67; PULSE 106; RESP 18; TEMP 98; O2SAT 99
--- NOTE | 2025-08-06 15:20 | PROGRESS NOTE ---
Daily Progress Note Providers to CC ~ Antibiotic Timeout Antibiotic Ordered?: Yes Subjective The patient has some improvement in his lower extremity wounds awaiting wound care evaluation tomorrow- a wound culture grew out Gram-positive cocci thus far. The patient informs me starting to feel little sick from fentanyl withdrawal initially I was going to give the patient is Suboxone however he states when he takes Suboxone in his state he has a take a small amount of 1st not a full wafer otherwise he will get sick his pain medications helping somewhat he is on 2 mg of morphine IV as needed and 10 mg of [place] I have added a 4 mg IV morphine for severe pain and DC [place] and change this to Percocet so the patient does not go through severe opiate withdrawal Objective Vital Signs Date Time Temp Pulse Resp B/P (MAP) Pulse Ox O2 Delivery O2 Flow Rate FiO2 08/06/25 11:34 17 08/06/25 10:00 98.0 106 124/67 (86) 99 Room Air 08/05/25 01:32 0 Result Diagram: 08/06/25 01008/06/25 0107 Gen. No acute distress alert and oriented 4 Lungs clear to ascultation bilaterally, no wheezes rales or rhonchi appreciated Heart normal sinus rhythm no murmurs rubs or clicks noted Abdomen soft nontender bowel sounds are normoactive Lower extremities moderate edema of the distal left lower extremity with a blister on the heel with a faint erythema, anterior cruz ulcerations on the right distal lower extremity with surrounding erythem no edema appreciated Coagulation Studies Laboratory Tests Test 08/06/25 01:07 Prothrombin Time 11.0 SECONDS (9.0-12.0) INR International Normalized Ratio 1.1 INR Activated Partial Thromboplast Time 31 SECONDS (22-32) Coagulation Comments Problem\Assessment\Plan Problems/Diagnosis: (1) Infection of skin and subcutaneous tissue 1. Righ lower extremity Ulcerated Wound Left lower extremity multiple wounds Multiple small wounds in right hand. Bilateral lower extremity CT: No signs of osteomyelitis or abscess Continue IV cefepime and vancomycin white blood cell count is downtrending 08/06 slowly improving awaiting wound care evaluation in the a.m. 2. Substance use disorder Urine toxicology positive fentanyl Substance abuse navigator and dialysis social worker consulted 08/06 early withdrawal- previously if the patient takes a full wafer of Suboxone he will become sick and will start with a partial wafer however was elected to add a 4 mg IV morphine dose for severe pain and to DC [place] and change this to Percocet as needed 3. Homelessness Code status: Full code DVT prophylaxis: Lovenox Disposition: Continue monitoring patient on antibiotics and wound care. Date of Service: Aug 06, 2025 Billing Provider: LUCRETIA HAAS DO Common Visit Codes: [id number] INP/OBS CARE(HIGH) LUCRETIA HAAS DO Aug 06, 2025 15:20
[2025-08-06] MEDS: morphine 4 MG/ML inj SYRINge IV PRN (15:49)
[2025-08-06] MEDS: VANCOmycin 1250MG/NS 250ml Bag 250 ML IV SCH (18:00)
[2025-08-06 22:00] VITALS: BP 97/56; PULSE 85; RESP 16; TEMP 98.3; O2SAT 96
[2025-08-07 06:00] VITALS: BP_SYST 100; BP_SYST 102; BP_DIAS 63; BP_DIAS 74; PULSE 82; PULSE 96; RESP 16; RESP 18; TEMP 97.3; TEMP 99.2; O2SAT 96; O2SAT 98
[2025-08-07 06:01] LABS: MEAN PLATELET VOLUME 7.0 FL (7.4-10.4); RED CELL DISTRIBUTION WIDTH 12.6 % (11.5-14.5)
[2025-08-07 06:18] LABS: APTT 30 SECONDS (22-32); INR 1.1 INR
[2025-08-07 06:22] LABS: CREATININE 0.97 MG/DL (0.60-1.10); PHOSPHORUS 4.4 MG/DL (2.3-4.5); TOTAL CARBON DIOXIDE 33.0 MMOL/L (24-32); eCRCL 113 ML/MIN; eGFR 88 ML/MIN
[2025-08-07 08:00] VITALS: RESP 16; O2SAT 98
[2025-08-07] MEDS: VANCOMYCIN LEVEL IV ONE (17:58)
[2025-08-07 18:00] VITALS: BP 108/72; PULSE 82; RESP 16; TEMP 98.9; O2SAT 99
--- NOTE | 2025-08-07 19:09 | PROGRESS NOTE ---
Daily Progress Note Providers to CC ~ Antibiotic Timeout Antibiotic Ordered?: Yes Subjective Patient was seen in his room in presence of nursing staff. His lower extremity wound examined. He has healing open right leg wound in left lower extremity and left leg wound also healing well Objective Vital Signs Date Time Temp Pulse Resp B/P (MAP) Pulse Ox O2 Delivery O2 Flow Rate FiO2 08/07/25 18:00 98.9 82 16 108/72 (84) 99 Room Air 08/07/25 06:00 0.0 Result Diagram: 08/07/25 0433 08/07/25 0433 General-patient not in any acute distress, alert awake oriented, chronically ill-appearing, age-appropriate, looks comfortable HEENT-atraumatic normocephalic, neck supple without elevated JVD, No lymphadenopathy bilaterally. Eyes-no icterus or pallor seen in eyes Chest-clear to auscultation bilaterally, breathing nonlabored no tachypnea, no wheezing, no crepitation, no crackles. Heart-S1-S2 normal, regular heart rate no murmur Abdomen bowel sounds positive on auscultation, soft nondistended nontender no guarding, no rigidity Neurology-grossly intact, nonfocal alert awake oriented Skin / Extremity- He has healing open right leg wound in left lower extremity and left leg wound also healing well Extremity- no pedal edema able to move all 4 extremities Psychiatry - patient is not confused or agitated cooperated during physical examination Coagulation Studies Laboratory Tests Test 08/07/25 04:33 Prothrombin Time 10.9 SECONDS (9.0-12.0) INR International Normalized Ratio 1.1 INR Activated Partial Thromboplast Time 30 SECONDS (22-32) Coagulation Comments Problem\Assessment\Plan Problems/Diagnosis: (1) Infection of skin and subcutaneous tissue 1. Righ lower extremity Ulcerated Wound Left lower extremity multiple wounds Multiple small wounds in right hand. Bilateral lower extremity CT: No signs of osteomyelitis or abscess Continue IV cefepime and vancomycin white blood cell count is downtrending 08/06 slowly improving awaiting wound care evaluation in the a.m. 2. Substance use disorder Urine toxicology positive fentanyl Substance abuse navigator and social media sr strategy manager consulted 08/06 early withdrawal- previously if the patient takes a full wafer of Suboxone he will become sick and will start with a partial wafer however was elected to add a 4 mg IV morphine dose for severe pain and to DC Delevan and change this to Percocet as needed 3. Homelessness Code status: Full code DVT prophylaxis: Lovenox Disposition: Continue monitoring patient on antibiotics and wound care. Patient's current condition is guarded we will continue to follow patient in a.m. patient needs wound care appointment in outpatient setting. Date of Service: Aug 07, 2025 Billing Provider: ROSAURA DENSON MD Common Visit Codes: [id number] INP/OBS CARE(HIGH) ROSAURA DENSON MD Aug 07, 2025 19:09
[2025-08-07] MEDS: nicotine 14mg patch - 24hr TD ONE (19:33)
[2025-08-07 22:00] VITALS: BP 107/63; PULSE 85; RESP 16; TEMP 98.3; O2SAT 98
[2025-08-08 05:45] LABS: MEAN PLATELET VOLUME 7.0 FL (7.4-10.4); RED CELL DISTRIBUTION WIDTH 12.6 % (11.5-14.5)
[2025-08-08 05:47] LABS: INR 1.1 INR
[2025-08-08 05:51] LABS: CREATININE 0.85 MG/DL (0.60-1.10); PHOSPHORUS 3.2 MG/DL (2.3-4.5); TOTAL CARBON DIOXIDE 29.9 MMOL/L (24-32); eCRCL 129 ML/MIN; eGFR > 90 ML/MIN
[2025-08-08 06:00] VITALS: BP 118/76; PULSE 77; RESP 16; TEMP 98; O2SAT 98
[2025-08-08 08:00] VITALS: RESP 13; O2SAT 98
[2025-08-08 10:00] VITALS: BP 113/69; PULSE 96; RESP 14; TEMP 98.5; O2SAT 97
[2025-08-08] MEDS ORDERED: ACET-1008 PO (13:40)
[2025-08-08] MEDS ORDERED: LINE600T14 PO (13:40)
[2025-08-08] MEDS ORDERED: vancomycin/NS 1 GM ADD-VANTAGE 250 ML IV SCH (17:00)
--- NOTE | 2025-08-08 17:47 | DISCHARGE SUMMARY ---
Discharge Summary Providers to CC ~ Discharge Summary Admission Diagnosis: Cellulitis Hospital Course DATE OF ADMISSION: 08/04/25 DATE OF DISCHARGE:08/08/25 CBC testing done on August 08, 2025 WBC 10.3 hemoglobin 12.5 hematocrit 35.7 platelet count 399. Sed rate 38. Serum chemistry done on August 08, 2025 sodium 138 potassium 4.1 creatinine 0.85 GFR greater than 90 normal liver enzymes procalcitonin less than 0.05. Left foot wound culture positive for Staphylococcus aureus and Streptococcus pyogenes in his organism. Blood culture showed no growth after three days. CT LOWER EXTREMITYIMPRESSION: Moderate dorsal soft tissue swelling. Mild soft tissue swelling throughout the remainder of the imaged right lower extremity. 3.6 cm skin ulceration anterolaterally at the level of the right lower tibia/fibula. No CT evidence for abscess or osteomyelitis. CT LOWER EXTREMITY IMPRESSION: 1. No acute osseous abnormality. 2. Fat stranding and skin thickening throughout the left leg and is suspicious for cellulitis. No discernible abscess identified. Discharge Diagnosis\\Comment: Righ lower extremity Ulcerated Wound Left lower extremity multiple wounds Multiple small wounds in right hand. Substance abuse disorder Homelessness Operations\\Procedures: None Consultants: None Complications: None Condition on DC: Stable New Medications: Linezolid (Linezolid) 600 Mg Tablet 1 TAB PO Q12H for 10 Days, #20 TAB 0 Refills Changed Medications: Acetaminophen (Tylenol) 325 Mg Tablet 1 TAB PO Q8H PRN for pain or fever for 10 Days, #30 TAB (Changed from: QDAY PRN; 30) Discontinued Medications: Home Med List (No Home Medications) Each Discharge Summary: Per admitting provider's history and physical note" This is a 34-year-old homeless male with a history of opioid use disorder presented in ER with a chief complaint of right lower leg ulcerated wound. Patient reports that came here for the same complaint about four months ago and was treated with antibiotics which was healed however for the past one month he started noticing a wound which is painful, draining little bit and patient does not remember how it occurred. In addition to that he also has multiple wounds on right foot since three weeks which he thinks it is due to because of shoes and because of thorns. Denies nausea, vomiting, chest pain, shortness of breath" During hospitalization patient was treated for 1. Righ lower extremity Ulcerated Wound Left lower extremity multiple wounds Multiple small wounds in right hand. Bilateral lower extremity CT: No signs of osteomyelitis or abscess Continue IV cefepime and vancomycin white blood cell count is downtrending 08/06 slowly improving awaiting wound care evaluation in the a.m. Wound Care team followed the patient during hospitalization 2. Substance use disorder Urine toxicology positive fentanyl Substance abuse navigator and executive secretary social welfare consulted 08/07- as documented by Ibeth Haque RN " Patient was found in bathroom straw made out of pen on floor by patients foot. Patient holding tin foil. Charge nurse ask for foil and what was in it patient quickly flushed tin foil and contents in toilet. Girlfriend was out side of door smelling of marijuana. Security called. Girlfriend was asked to leave by security and to not come back. Security went through patients belongings and found another another piece of tin foil. Patient was deciding to go AMA. But Changed his mind and decided to wait for doctor. Doctor arrived and discharge order given. " 3. Homelessness Code status: Full code DVT prophylaxis: Lovenox Patient is feeling better he has been afebrile and getting discharged home in stable condition. Patient is seen and examined on the day of discharge. All questions and queries answered to the best of my professional medical knowledge. I heard patient's concerns and address appropriately. Patient is able to ambulate by himself. retail analytics manager Leatha involved in patient's discharge plan. Discharge instructions provided to the patient- please follow [facility] wound care clinic for appointment - continue antibiotics as prescribed - call 911/go to the nearby ED if any emergencies - patient will also need referral to primary care provider follow urgent care or [facility] -patient is strongly advised to stop recreational drugs and risks explained General-patient not in any acute distress, alert awake oriented, chronically ill-appearing, age-appropriate, looks comfortable HEENT-atraumatic normocephalic, neck supple without elevated JVD, No lymphadenopathy bilaterally. Eyes-no icterus or pallor seen in eyes Chest-clear to auscultation bilaterally, breathing nonlabored no tachypnea, no wheezing, no crepitation, no crackles. Heart-S1-S2 normal, regular heart rate no murmur Abdomen bowel sounds positive on auscultation, soft nondistended nontender no guarding, no rigidity Neurology-grossly intact, nonfocal alert awake oriented Skin / Extremity- He has healing open right leg wound in left lower extremity and left leg wound also healing well Extremity- no pedal edema able to move all 4 extremities Psychiatry - patient is not confused or agitated cooperated during physical examination *Problems/Diagnosis: (1) Infection of skin and subcutaneous tissue Status: Acute Total Time Spent on D/C: > 30 Minutes Date of Service: Aug 08, 2025 Billing Provider: ROSAURA DENSON MD Common Visit Codes: 34000-MVM/OBS DISCH DAY >30min ROSAURA DENSON MD Aug 08, 2025 17:46
[2025-08-09] MEDS ORDERED: VANCOMYCIN LEVEL IV ONE (16:30)
== END 2025-08-08 14:40 | disposition home or self-care (01) | DRG 383 ==
LOC: ER 17:01 → ED HOLD 23:01 → EDBEDREQ 08-05 00:49 → ORTHO 4S 08-05 01:46
PROVIDERS: ADMIT Internal Medicine; ATTEND Family Medicine
PROC: BQ2R1ZZ Computerized Tomography (CT Scan) of Right Lower Extremity using Low Osmolar Contrast (ICD-10-PCS; principal; 2025-08-05)
DX: L03.818 Cellulitis of other sites (principal); Z59.00 Homelessness unspecified; S81.801A Unspecified open wound, right lower leg, initial encounter; S81.802A Unspecified open wound, left lower leg, initial encounter; Z88.8 Allergy status to other drugs, medicaments and biological substances; S61.401A Unspecified open wound of right hand, initial encounter; X58.XXXA Exposure to other specified factors, initial encounter; Y93.89 Activity, other specified; Y92.89 Other specified places as the place of occurrence of the external cause; Y99.8 Other external cause status
CPT/HCPCS: 36415; 73701; 80053; 80202; 80305; 81001; 83605; 83735; 84100; 84145; 85025; 85610; 85651; 85730; 87040; 87070; 87075; 87077; 87081; 87186; 99285; A6223; A6258; A6446; A6449; G0378; J0692; J2270; J3373; J3374; J3375; J7030; J7040; Q9967